=== PATIENT | female | born 1995 | race Caucasian/White ===

== ENCOUNTER 2017-03-01 00:31 | Emergency (ER) | payer BC ==
[2017-03-01] MEDS ORDERED: Sodium Chloride 0.9% 1,000 ML IV ONE (00:44)
--- NOTE | 2017-03-01 00:44 | EDM.PDOC ---
ED HPI GENERAL MEDICAL PROBLEM - General Stated Complaint: DEHYDRATION Time Seen by Provider: 03/01/17 00:43 Source of Information: Reports: Patient - History of Present Illness INITIAL COMMENTS - FREE TEXT/NARRATIVE: HISTORY AND PHYSICAL: History of present illness: Patient with anxiety presents with palpitation and sensation of heart is pounding and she is unable to sleep no fever nausea vomiting chills sweats no chest pain shortness breath headache dizziness no bowel or urine symptoms Review of systems: As per history of present illness and below otherwise all systems reviewed and negative. Past medical history: As per history of present illness and as reviewed below otherwise noncontributory. Surgical history: As per history of present illness and as reviewed below otherwise noncontributory. Social history: No reported history of drug or alcohol abuse. Family history: As per history of present illness and as reviewed below otherwise noncontributory. Physical exam: HEENT: Atraumatic, normocephalic, pupils reactive, negative for conjunctival pallor or scleral icterus, mucous membranes moist, throat clear, neck supple, nontender, trachea midline. Lungs: Clear to auscultation, breath sounds equal bilaterally, chest nontender. Heart: S1S2, regular, negative for clicks, rubs, or JVD. Abdomen: Soft, nondistended, nontender. Negative for masses or hepatosplenomegaly. Negative for costovertebral tenderness. Pelvis: Stable nontender. Genitourinary: Deferred. Rectal: Deferred. Extremities: Atraumatic, negative for cords or calf pain. Neurovascular unremarkable. Neuro: Awake, alert, oriented. Cranial nerves II through XII unremarkable. Cerebellum unremarkable. Motor and sensory unremarkable throughout. Exam nonfocal. Left upper extremity ache no pain associated with head movement I can reproduce some pain with extremes of forward extension palpation over trapezius distribution as well as insertion of packed major on the left otherwise extremity is neurovascularly intact Diagnostics: []Lab as below EKG Chest 1 view Therapeutics: []1 L normal saline bolus Impression: [Anxiety about health Definitive disposition and diagnosis as appropriate pending reevaluation and review of above. no pain Pain Score (Numeric/FACES): 0 - Related Data Allergies Allergy/AdvReac Type Severity Reaction Status Date / Time No Known Allergies Allergy Verified 03/01/17 01:04 Home Meds: Home Meds . [No Known Home Meds] 03/01/17 [History] ED ROS GENERAL - Review of Systems Review Of Systems: ROS reveals no pertinent complaints other than HPI. ED EXAM, GENERAL - Physical Exam Exam: See Below Course - Vital Signs Last Recorded V/S: Last Vital Signs Temp 37.3 C 03/01/17 00:40 Pulse 84 03/01/17 00:40 Resp 18 03/01/17 00:40 BP 136/90 03/01/17 00:40 Pulse Ox 100 03/01/17 00:40 - Orders/Labs/Meds Orders: Active Orders 24 hr Category Date Time Status EKG 12 Lead [EKG Documentation Completion] [RC] STAT Care 03/01/17 01:13 Active Labs: Laboratory Tests 03/01/17 03/01/17 03/01/17 Range/Units 00:55 01:15 01:15 WBC 8.68 (4.0-11.0) K/uL RBC 4.83 (4.30-5.90) M/uL Hgb 14.5 (12.0-16.0) g/dL Hct 42.3 (36.0-46.0) % MCV 87.6 (80.0-98.0) fL MCH 30.0 (27.0-32.0) pg MCHC 34.3 (31.0-37.0) g/dL RDW Std Deviation 39.8 (28.0-62.0) fl RDW Coeff of Patricio 12 (11.0-15.0) % Plt Count 188 (150-400) K/uL MPV 10.60 (7.40-12.00) fL Neut % (Auto) 61.6 (48.0-80.0) % Lymph % (Auto) 30.2 (16.0-40.0) % Wright % (Auto) 6.3 (0.0-15.0) % Eos % (Auto) 1.6 (0.0-7.0) % Baso % (Auto) 0.3 (0.0-1.5) % Neut # (Auto) 5.3 (1.4-5.7) K/uL Lymph # (Auto) 2.6 H (0.6-2.4) K/uL Wright # (Auto) 0.6 (0.0-0.8) K/uL Eos # (Auto) 0.1 (0.0-0.7) K/uL Baso # (Auto) 0.0 (0.0-0.1) K/uL Nucleated RBC % 0.0 /100WBC Nucleated RBCs # 0 K/uL Sodium 140 (136-146) mmol/L Potassium 4.1 (3.5-5.1) mmol/L Chloride 107 (98-110) mmol/L Carbon Dioxide 24 (21-31) mmol/L BUN 16 (6.0-23.0) mg/dL Creatinine 0.9 (0.6-1.5) mg/dL Est Cr Clr Drug Dosing 76.89 mL/min Estimated GFR (MDRD) > 60.0 ml/min Glucose 110 (60-110) mg/dL Calcium 9.2 (8.8-10.8) mg/dL Total Bilirubin 0.9 (0.1-1.5) mg/dL AST 15 (5-40) IU/L ALT 14 (8-54) IU/L Alkaline Phosphatase 42 (40-150) Troponin I (0.0-0.29) NG/ML Total Protein 7.4 (6.0-8.0) g/dL Albumin 4.3 (3.5-5.0) g/dL Globulin 3.1 (2.0-3.5) g/dL Albumin/Globulin Ratio 1.4 (1.3-2.8) Urine Color YELLOW Urine Appearance CLEAR Urine pH 7.0 (5.0-8.0) Ur Specific Mcandrews <= 1.005 (1.001-1.035) Urine Protein NEGATIVE (NEGATIVE) mg/dL Urine Glucose (UA) NEGATIVE (NEGATIVE) mg/dL Urine Ketones NEGATIVE (NEGATIVE) mg/dL Urine Occult Blood NEGATIVE (NEGATIVE) Urine Nitrite NEGATIVE (NEGATIVE) Urine Bilirubin NEGATIVE (NEGATIVE) Urine Urobilinogen 0.2 (<2.0) EU/dL Ur Leukocyte Esterase NEGATIVE (NEGATIVE) Urine RBC 0-1 (0-2/HPF) Urine WBC 0-2 (0-5/HPF) Ur Epithelial Cells OCCASIONAL (NONE-FEW) Urine Bacteria RARE (NEGATIVE) Urine Mucus RARE (NONE-MOD) 03/01/17 Range/Units 01:15 WBC (4.0-11.0) K/uL RBC (4.30-5.90) M/uL Hgb (12.0-16.0) g/dL Hct (36.0-46.0) % MCV (80.0-98.0) fL MCH (27.0-32.0) pg MCHC (31.0-37.0) g/dL RDW Std Deviation (28.0-62.0) fl RDW Coeff of Patricio (11.0-15.0) % Plt Count (150-400) K/uL MPV (7.40-12.00) fL Neut % (Auto) (48.0-80.0) % Lymph % (Auto) (16.0-40.0) % Wright % (Auto) (0.0-15.0) % Eos % (Auto) (0.0-7.0) % Baso % (Auto) (0.0-1.5) % Neut # (Auto) (1.4-5.7) K/uL Lymph # (Auto) (0.6-2.4) K/uL Wright # (Auto) (0.0-0.8) K/uL Eos # (Auto) (0.0-0.7) K/uL Baso # (Auto) (0.0-0.1) K/uL Nucleated RBC % /100WBC Nucleated RBCs # K/uL Sodium (136-146) mmol/L Potassium (3.5-5.1) mmol/L Chloride (98-110) mmol/L Carbon Dioxide (21-31) mmol/L BUN (6.0-23.0) mg/dL Creatinine (0.6-1.5) mg/dL Est Cr Clr Drug Dosing mL/min Estimated GFR (MDRD) ml/min Glucose (60-110) mg/dL Calcium (8.8-10.8) mg/dL Total Bilirubin (0.1-1.5) mg/dL AST (5-40) IU/L ALT (8-54) IU/L Alkaline Phosphatase (40-150) Troponin I < 0.10 (0.0-0.29) NG/ML Total Protein (6.0-8.0) g/dL Albumin (3.5-5.0) g/dL Globulin (2.0-3.5) g/dL Albumin/Globulin Ratio (1.3-2.8) Urine Color Urine Appearance Urine pH (5.0-8.0) Ur Specific Mcandrews (1.001-1.035) Urine Protein (NEGATIVE) mg/dL Urine Glucose (UA) (NEGATIVE) mg/dL Urine Ketones (NEGATIVE) mg/dL Urine Occult Blood (NEGATIVE) Urine Nitrite (NEGATIVE) Urine Bilirubin (NEGATIVE) Urine Urobilinogen (<2.0) EU/dL Ur Leukocyte Esterase (NEGATIVE) Urine RBC (0-2/HPF) Urine WBC (0-5/HPF) Ur Epithelial Cells (NONE-FEW) Urine Bacteria (NEGATIVE) Urine Mucus (NONE-MOD) Meds: Medications Discontinued Medications Generic Name Dose Route Start Last Admin Trade Name Freq PRN Reason Stop Dose Admin Sodium Chloride 1,000 mls @ 999 mls/hr 03/01/17 00:44 03/01/17 01:20 Normal Saline IV 03/01/17 01:44 999 mls/hr STAT ONE Administration Departure - Departure Time of Disposition: 01:37 Disposition: Home, Self-Care 01 Condition: Good Clinical Impression: Anxiety about health Clinical Impression: (Ruled Out): Muscle spasm - Discharge Information Referrals: Krunal Gonzalez MD [Primary Care Provider] - Additional Instructions: Ativan 0.5 mg by mouth twice a day when necessary #10 no refill Return if symptoms persist or worsen Follow-up primary care in 2 weeks sooner as needed The following information is given to patients seen in the emergency department who are being discharged to home. This information is to outline your options for follow-up care. We provide all patients seen in our emergency department with a follow-up referral. The need for follow-up, as well as the timing and circumstances, are variable depending upon the specifics of your emergency department visit. If you don't have a primary care physician on staff, we will provide you with a referral. We always advise you to contact your personal physician following an emergency department visit to inform them of the circumstance of the visit and for follow-up with them and/or the need for any referrals to a consulting specialist. The emergency department will also refer you to a specialist when appropriate. This referral assures that you have the opportunity for follow-up care with a specialist. All of these measure are taken in an effort to provide you with optimal care, which includes your follow-up. Under all circumstances we always encourage you to contact your private physician who remains a resource for coordinating your care. When calling for follow-up care, please make the office aware that this follow-up is from your recent emergency room visit. If for any reason you are refused follow-up, please contact the [facility] emergency department at and asked to speak to the emergency department charge nurse. - My Orders Last 24 Hours: My Active Orders 03/01/17 01:13 EKG 12 Lead [EKG Documentation Completion] [RC] STAT - Assessment/Plan Last 24 Hours: My Active Orders 03/01/17 01:13 EKG 12 Lead [EKG Documentation Completion] [RC] STAT
[2017-03-01 01:52] LABS: CHLORIDE,CL 107 mmol/L (98-110); SODIUM,NA 140 mmol/L (136-146)
[2017-03-01 02:31] VITALS: BP 130/65
== END 2017-03-01 02:29 | disposition home or self-care (01) ==
LOC: MW.ED 00:31
DX: F41.9 Anxiety disorder, unspecified (principal)
CPT/HCPCS: 80053; 81001; 84484; 85025; 93005; 96360; 99285; J7040; 99282

== ENCOUNTER 2019-04-14 23:51 | Emergency (ER) | payer BC ==
[2019-04-15] MEDS ORDERED: Levofloxacin 500 MG Tab PO ONE (00:28)
--- NOTE | 2019-04-15 00:28 | EDM.PDOC ---
ED HPI GENERAL MEDICAL PROBLEM - General Chief Complaint: Genitourinary Problem Stated Complaint: SEVERE BACK PAIN AND SPOTTING Time Seen by Provider: 04/15/19 00:27 Source of Information: Reports: Patient - History of Present Illness INITIAL COMMENTS - FREE TEXT/NARRATIVE: HISTORY AND PHYSICAL: History of present illness: [Patient presents with frequency dysuria and "spotting", is recently been treated with Macrobid for UTI through the [facility] system, when questioned about spotting her last menstrual period was 2 weeks prior she is not per our testing however she is not truly spotting she is noting some blood on the tissue after wiping after passing urine No fever nausea vomiting chills sweats she does have some mild 2 out of 10 left flank discomfort] Review of systems: As per history of present illness and below otherwise all systems reviewed and negative. Past medical history: As per history of present illness and as reviewed below otherwise noncontributory. Surgical history: As per history of present illness and as reviewed below otherwise noncontributory. Social history: No reported history of drug or alcohol abuse. Family history: As per history of present illness and as reviewed below otherwise noncontributory. Physical exam: HEENT: Atraumatic, normocephalic, pupils reactive, negative for conjunctival pallor or scleral icterus, mucous membranes moist, throat clear, neck supple, nontender, trachea midline. Lungs: Clear to auscultation, breath sounds equal bilaterally, chest nontender. Heart: S1S2, regular, negative for clicks, rubs, or JVD. Abdomen: Soft, nondistended, nontender. Negative for masses or hepatosplenomegaly. Kidney punch is positive on the left Pelvis: Stable nontender. Genitourinary: Deferred. Rectal: Deferred. Extremities: Atraumatic, negative for cords or calf pain. Neurovascular unremarkable. Neuro: Awake, alert, oriented. Cranial nerves II through XII unremarkable. Cerebellum unremarkable. Motor and sensory unremarkable throughout. Exam nonfocal. Diagnostics: [UA hCG ] Therapeutics: [Kianna Garcia ] Impression: [UTI Clinical early pyelonephritis ] Definitive disposition and diagnosis as appropriate pending reevaluation and review of above. L flank Pain Score (Numeric/FACES): 8 - Related Data Allergies Allergy/AdvReac Type Severity Reaction Status Date / Time No Known Allergies Allergy Verified 04/15/19 00:06 Home Meds: Home Meds Desvenlafaxine Succinate [Pristiq] 50 mg PO DAILY 04/15/19 [History] Past Medical History HEENT History: Reports: None Cardiovascular History: Reports: None Respiratory History: Reports: None Gastrointestinal History: Reports: None Genitourinary History: Reports: None MANAGER INVENTORY MANAGEMENT History: Reports: , Spontaneous Musculoskeletal History: Reports: None Neurological History: Reports: None Psychiatric History: Reports: Anxiety, Depression Endocrine/Metabolic History: Reports: None Hematologic History: Reports: None Immunologic History: Reports: None Oncologic (Cancer) History: Reports: None Dermatologic History: Reports: None - Infectious Disease History Infectious Disease History: Reports: None - Past Surgical History Head Surgeries/Procedures: Reports: None Female Surgical History: Reports: Section Social & Family History - Family History Family Medical History: Noncontributory - Tobacco Use Smoking Status *Q: Never Smoker Second Hand Smoke Exposure: No - Caffeine Use Caffeine Use: Reports: Coffee, Soda - Recreational Drug Use Recreational Drug Use: No ED ROS GENERAL - Review of Systems Review Of Systems: See Below ED EXAM, GENERAL - Physical Exam Exam: See Below Course - Vital Signs Last Recorded V/S: Last Vital Signs Temp 97.5 F 04/15/19 00:00 Pulse 75 04/15/19 00:00 Resp 16 04/15/19 00:00 BP 137/73 04/15/19 00:00 Pulse Ox 99 04/15/19 00:00 - Orders/Labs/Meds Orders: Active Orders 24 hr Category Date Time Status CULTURE URINE [RM] Stat Lab 04/15/19 00:05 Received levoFLOXacin [Levaquin] Med 04/15/19 00:28 Once 500 mg PO ONETIME ONE Labs: Laboratory Tests 04/15/19 04/15/19 Range/Units 00:05 00:05 Urine Color YELLOW Urine Appearance CLOUDY Urine pH 6.0 (5.0-8.0) Ur Specific Carlton >= 1.030 (1.001-1.035) Urine Protein NEGATIVE (NEGATIVE) mg/dL Urine Glucose (UA) NEGATIVE (NEGATIVE) mg/dL Urine Ketones NEGATIVE (NEGATIVE) mg/dL Urine Occult Blood LARGE H (NEGATIVE) Urine Nitrite NEGATIVE (NEGATIVE) Urine Bilirubin NEGATIVE (NEGATIVE) Urine Urobilinogen 2.0 H (<2.0) EU/dL Ur Leukocyte Esterase MODERATE H (NEGATIVE) Urine RBC 15-19 (0-2/HPF) Urine WBC 75-100 (0-5/HPF) Ur Epithelial Cells RARE (NONE-FEW) Urine Bacteria 1+ H (NEGATIVE) Coarse Granular Casts 0-1 (NEGATIVE) Urine Mucus LIGHT (NONE-MOD) Urine HCG, Qual NEGATIVE (NEGATIVE) Departure - Departure Time of Disposition: 00:30 Disposition: Home, Self-Care 01 Condition: Good Clinical Impression: UTI, Urinary tract infectious disease - Discharge Information Referrals: Krunal Gonzalez MD [Primary Care Provider] - Forms: ED Department Discharge Additional Instructions: The following information is given to patients seen in the emergency department who are being discharged to home. This information is to outline your options for follow-up care. We provide all patients seen in our emergency department with a follow-up referral. The need for follow-up, as well as the timing and circumstances, are variable depending upon the specifics of your emergency department visit. If you don't have a primary care physician on staff, we will provide you with a referral. We always advise you to contact your personal physician following an emergency department visit to inform them of the circumstance of the visit and for follow-up with them and/or the need for any referrals to a consulting specialist. The emergency department will also refer you to a specialist when appropriate. This referral assures that you have the opportunity for follow-up care with a specialist. All of these measure are taken in an effort to provide you with optimal care, which includes your follow-up. Under all circumstances we always encourage you to contact your private physician who remains a resource for coordinating your care. When calling for follow-up care, please make the office aware that this follow-up is from your recent emergency room visit. If for any reason you are refused follow-up, please contact the [facility] emergency department at and asked to speak to the emergency department charge nurse. - My Orders Last 24 Hours: My Active Orders 04/15/19 00:05 CULTURE URINE [RM] Stat 04/15/19 00:28 levoFLOXacin [Levaquin] 500 mg PO ONETIME ONE - Assessment/Plan Last 24 Hours: My Active Orders 04/15/19 00:05 CULTURE URINE [RM] Stat 04/15/19 00:28 levoFLOXacin [Levaquin] 500 mg PO ONETIME ONE
[2019-04-15 00:35] VITALS: BP 123/80; PULSE 69
== END 2019-04-15 00:40 | disposition home or self-care (01) ==
LOC: MW.ED 23:51
DX: N12 Tubulo-interstitial nephritis, not specified as acute or chronic (principal)
CPT/HCPCS: 81001; 81025; 87086; 99284; A9270

== ENCOUNTER 2019-07-25 14:52 | Emergency (ER) | payer BC ==
[2019-07-25 15:21] VITALS: BP 122/56; PULSE 70
--- NOTE | 2019-07-25 16:07 | EDM.PDOC ---
ED HPI GENERAL MEDICAL PROBLEM - General Chief Complaint: Back Pain or Injury Stated Complaint: 10 WKS PREG, BACK AND RIB PAIN Time Seen by Provider: 07/25/19 15:16 Source of Information: Reports: Patient History Limitations: Reports: No Limitations - History of Present Illness INITIAL COMMENTS - FREE TEXT/NARRATIVE: HISTORY AND PHYSICAL: History of present illness: Patient is a 24-year-old female who presents to the ED today for concern of possible urinary tract infection. Patient states she is approximately 9 weeks . Patient states she has had a confirmed intrauterine with Dr. Nicolas at [facility]. Patient states yesterday she began having some vague low back discomfort and states that her urine has been cloudy since yesterday but no pain with urination or urinary frequency. Patient denies any loss or retention of bowel bladder function or saddle anesthesia or back injury. Patient denies any other symptoms or concerns. Patient denies fever, chills, chest pain, shortness of breath, or cough. Denies headache, neck stiff ness, change in vision, syncope, or near syncope. Denies nausea, vomiting, abdominal pain, diarrhea, constipation, or dysuria. Has not noted any blood in urine or stool. Patient has been eating and drinking appropriately. Review of systems: As per history of present illness and below otherwise all systems reviewed and negative. Past medical history: As per history of present illness and as reviewed below otherwise noncontributory. Surgical history: As per history of present illness and as reviewed below otherwise noncontributory. Social history: See social history for further information Family history: As per history of present illness and as reviewed below otherwise noncontributory. Physical exam: General: Patient is alert, oriented, and in no acute distress. Patient sitting comfortably on exam table. HEENT: Atraumatic, normocephalic, pupils equal and reactive bilaterally, negative for conjunctival pallor or scleral icterus, mucous membranes moist, TMs normal bilaterally, throat clear, neck supple, nontender, trachea midline. No drooling or trismus noted. No meningeal signs. No hot potato voice noted. Lungs: Clear to auscultation, breath sounds equal bilaterally, chest nontender. Heart: S1S2, regular rate and rhythm without overt murmur Abdomen: Soft, nondistended, nontender. Negative for masses or hepatosplenomegaly. Negative for costovertebral tenderness. Pelvis: Stable nontender. Genitourinary: Deferred. Rectal: Deferred. Skin: Intact, warm, dry. No lesions or rashes noted. Extremities: Atraumatic, negative for cords or calf pain. Neurovascular unremarkable. No obvious deformity of the complete spine. No step-offs, crepitus, or point tenderness to palpation of the complete spine. Patient has full range of motion of complete spine without pain or difficulty. SLR intact bilaterally. Patellar reflex intact bilaterally. Heel/Toe gait intact. Neuro: Awake, alert, oriented. Cranial nerves II through XII unremarkable. Cerebellum unremarkable. Motor and sensory unremarkable throughout. Exam nonfocal. Notes: Discussed importance for follow-up with her AQUATIC HABITAT BIOLOGIST women's health provider. Voices understanding and is agreeable to plan of care. Denies any further questions or concerns at this time. Diagnostics: UA, urine culture Therapeutics: None Prescription: None Impression: Low back pain in Plan: 1. You can take Tylenol as directed for pain and discomfort. This is safe to use in . 2. Follow-up with your AQUATIC HABITAT BIOLOGIST/women's health provider as discussed. Return to the ED as needed and as discussed. Definitive disposition and diagnosis as appropriate pending reevaluation and review of above. Lower back Pain Score (Numeric/FACES): 7 - Related Data Allergies Allergy/AdvReac Type Severity Reaction Status Date / Time pineapple Allergy Swelling Verified 07/25/19 15:18 Home Meds: Home Meds Comb No.42/Folic Acid [Prena1 Chew Tablet] 1.4 mg PO ASDIRECTED [History] Past Medical History HEENT History: Reports: None Cardiovascular History: Reports: None Respiratory History: Reports: None Gastrointestinal History: Reports: None Genitourinary History: Reports: None AQUATIC HABITAT BIOLOGIST History: Reports: , Spontaneous Musculoskeletal History: Reports: None Neurological History: Reports: None Psychiatric History: Reports: Anxiety, Depression Endocrine/Metabolic History: Reports: None Hematologic History: Reports: None Immunologic History: Reports: None Oncologic (Cancer) History: Reports: None Dermatologic History: Reports: None - Infectious Disease History Infectious Disease History: Reports: Chicken Pox - Past Surgical History Head Surgeries/Procedures: Reports: None Female Surgical History: Reports: Section Social & Family History - Family History Family Medical History: Noncontributory - Tobacco Use Smoking Status *Q: Never Smoker Second Hand Smoke Exposure: No - Caffeine Use Caffeine Use: Reports: None - Recreational Drug Use Recreational Drug Use: No ED ROS GENERAL - Review of Systems Review Of Systems: Comprehensive ROS is negative, except as noted in HPI. ED EXAM, GENERAL - Physical Exam Exam: See Below (see dictation) Course - Vital Signs Last Recorded V/S: Last Vital Signs Temp 98.1 F 07/25/19 15:19 Pulse 70 07/25/19 15:19 Resp 16 07/25/19 15:19 BP 122/56 L 07/25/19 15:19 Pulse Ox 99 07/25/19 15:19 - Orders/Labs/Meds Orders: Active Orders 24 hr Category Date Time Status CULTURE URINE [RM] Stat Lab 07/25/19 16:22 Ordered Labs: Laboratory Tests 07/25/19 Range/Units 16:15 Urine Color YELLOW Urine Appearance SLT CLOUDY Urine pH 7.0 (5.0-8.0) Ur Specific [place] 1.025 (1.001-1.035) Urine Protein NEGATIVE (NEGATIVE) mg/dL Urine Glucose (UA) NEGATIVE (NEGATIVE) mg/dL Urine Ketones TRACE H (NEGATIVE) mg/dL Urine Occult Blood NEGATIVE (NEGATIVE) Urine Nitrite NEGATIVE (NEGATIVE) Urine Bilirubin NEGATIVE (NEGATIVE) Urine Urobilinogen 1.0 (<2.0) EU/dL Ur Leukocyte Esterase NEGATIVE (NEGATIVE) Departure - Departure Time of Disposition: 16:24 Disposition: Home, Self-Care 01 Clinical Impression: Low back pain during Qualifiers: Trimester: first trimester Qualified Code(s): O26.891 - Other specified related conditions, first trimester; M54.5 - Low back pain - Discharge Information Referrals: Krunal Gonzalez MD [Primary Care Provider] - Forms: ED Department Discharge Additional Instructions: The following information is given to patients seen in the emergency department who are being discharged to home. This information is to outline your options for follow-up care. We provide all patients seen in our emergency department with a follow-up referral. The need for follow-up, as well as the timing and circumstances, are variable depending upon the specifics of your emergency department visit. If you don't have a primary care physician on staff, we will provide you with a referral. We always advise you to contact your personal physician following an emergency department visit to inform them of the circumstance of the visit and for follow-up with them and/or the need for any referrals to a consulting specialist. The emergency department will also refer you to a specialist when appropriate. This referral assures that you have the opportunity for follow-up care with a specialist. All of these measure are taken in an effort to provide you with optimal care, which includes your follow-up. Under all circumstances we always encourage you to contact your private physician who remains a resource for coordinating your care. When calling for follow-up care, please make the office aware that this follow-up is from your recent emergency room visit. If for any reason you are refused follow-up, please contact the [facility] Emergency Department at and asked to speak to the emergency department charge nurse. [facility] [address] [place] [address] [facility] [address] [place] [address] [facility] [address] [place] [address] 1. You can take Tylenol as directed for pain and discomfort. This is safe to use in . 2. Follow-up with your AQUATIC HABITAT BIOLOGIST/women's health provider as discussed. Return to the ED as needed and as discussed. Sepsis Event Note - Evaluation Sepsis Screening Result: No Definite Risk - Focused Exam Vital Signs: Vital Signs Temp Pulse Resp BP Pulse Ox 07/25/19 15:19 98.1 F 70 16 122/56 L 99 Date Exam was Performed: 07/25/19 Time Exam was Performed: 16:23 - My Orders Last 24 Hours: My Active Orders 07/25/19 16:22 CULTURE URINE [RM] Stat - Assessment/Plan Last 24 Hours: My Active Orders 07/25/19 16:22 CULTURE URINE [RM] Stat
== END 2019-07-25 16:44 | disposition home or self-care (01) ==
LOC: MW.ED 14:52
DX: O26.891 Other specified pregnancy related conditions, first trimester (principal); M54.5 Low back pain; O34.219 Maternal care for unspecified type scar from previous cesarean delivery; Z91.018 Allergy to other foods; Z3A.09 9 weeks gestation of pregnancy
CPT/HCPCS: 81003; 87086; 99283

== ENCOUNTER 2021-06-29 05:15 | Inpatient (IN) | payer BC ==
[2021-06-29] MEDS ORDERED: Sodium Chloride 0.9% 10 ML Syringe FLUSH PRN (05:38)
[2021-06-29] MEDS ORDERED: Sodium Chloride 0.9% 20 ML SDV IV PRN (05:38)
[2021-06-29] MEDS ORDERED: Sodium Chloride 0.9% 2.5 ML Syringe FLUSH PRN (05:38)
[2021-06-29] MEDS: Lactated Ringers 1,000 ML IV SCH ×2 (06:00→06:32)
[2021-06-29] MEDS: Citric Acid/Sodium Citrate Solution 30 ML Cup PO ONE ×2 (06:39→08:04)
[2021-06-29] MEDS ORDERED: fentaNYL 100 MCG/2 ML SDV ONE ×2 (07:21→07:59)
[2021-06-29] MEDS ORDERED: ceFAZolin 2 GM in Premix Bag 1 BAG IV ONE (07:30)
[2021-06-29] MEDS ORDERED: Ondansetron 4 MG/2 ML SDV IVPUSH ONE (07:39)
[2021-06-29] MEDS ORDERED: Dexamethasone 10 MG/ML SDV IVPUSH ONE (07:40)
[2021-06-29] MEDS ORDERED: Famotidine 20 MG/2 ML SDV IVPUSH ONE (07:40)
[2021-06-29] MEDS ORDERED: Octyl 2-Cyanoacrylate 1 Tube ONE (07:52)
[2021-06-29] MEDS ORDERED: Oxytocin/0.9 % Sodium Chloride 30 UNIT/500 ML BAG IV SCH ×2 (08:00→09:45)
[2021-06-29] MEDS ORDERED: Morphine PF 10 MG/10 ML SDV ONE (08:09)
[2021-06-29] MEDS ORDERED: ePHEDrine 50 MG/ML SDV ONE (09:22)
[2021-06-29] MEDS ORDERED: Glycopyrrolate 0.2 MG/ML SDV ONE (09:22)
[2021-06-29] MEDS ORDERED: Oxytocin 10 Units/1 ML SDV ONE ×2 (09:22→17:11)
[2021-06-29] MEDS ORDERED: Acetaminophen/oxyCODONE 325-5 MG Tab PO PRN ×2 (09:32)
[2021-06-29] MEDS ORDERED: Methylergonovine 0.2 MG/1 ML Amp IM PRN (09:32)
[2021-06-29] MEDS ORDERED: Bisacodyl 10 MG Supp RECTAL PRN (09:32)
[2021-06-29] MEDS ORDERED: diphenhydrAMINE 50 MG/ML SDV IVPUSH PRN (09:32)
[2021-06-29] MEDS ORDERED: Tranexamic Acid 1,000 MG in Sodium Chloride 0.9% 100 ML IV PRN (09:32)
[2021-06-29] MEDS ORDERED: Oxytocin 10 Units/1 ML SDV IM PRN (09:32)
[2021-06-29] MEDS ORDERED: Lanolin 100% Cream 7 GM Tube TOP PRN (09:32)
[2021-06-29] MEDS ORDERED: Misoprostol 200 MCG Tab RECTAL PRN (09:32)
--- NOTE | 2021-06-29 09:40 | PCM.OPNOTE ---
- General Post-Op/Procedure Note Date of Surgery/Procedure: 06/29/21 Operative Procedure(s): Repeat lower transverse section Findings: Normal appearing male infant in cephalic presentation. Weight 8lbs 6oz. Apgars 8/9. Nuchal chord x1. Clear amniotic fluid. Normal appearing uterus, fallopian tubes and ovaries. Pre Op Diagnosis: 1. 39w1d hogan intrauterine gestation. 2. Gestational diabetes, diet controlled. 3. Previous section x2 Post-Op Diagnosis: 1. 39w1d hogan intrauterine gestation. 2. Gestational diabetes, diet controlled. 3. Previous section x2 Anesthesia Technique: Spinal Primary Surgeon: Corinne Diamond Anesthesia Provider: Krunal Guadarrama Digitizer: Helen Gonzalez Fluid Replacement, Intraop: 2,100 Output, Urine Amount: 400 (clear urine at end of procedure) EBL in mLs: 650 Complications: None known Condition: Good Free Text/Narrative:: Intake & Output 06/28/21 06/29/21 06/29/21 22:59 06:59 14:59 Intake Total 1000 50 Balance 1000 50 Dictation #[id number] Routine postoperative cares * Rh positive, rubella immune, GBS negative * PO pain medications ordered * Coon catheter to be removed in AM * Encourage fluid intake * Regular diet as tolerated Dispo: stable. Admit to floor and anticipate routine course.
[2021-06-29] MEDS ORDERED: Water For Injection, Sterile 20 ML ONE (09:44)
[2021-06-29] MEDS ORDERED: Lactated Ringers 1,000 ML IV SCH (09:45)
--- NOTE | 2021-06-29 09:56 | PCM.POSTAN ---
POST ANESTHESIA ASSESSMENT - MENTAL STATUS Mental Status: Alert, Oriented - RESPIRATORY Respiratory Status: Respiratory Rate WNL, Airway Patent, O2 Saturation Stable - CARDIOVASCULAR CV Status: Pulse Rate WNL, Blood Pressure Stable - GASTROINTESTINAL GI Status: No Symptoms - POST OP HYDRATION Hydration Status: Adequate & Stable
--- NOTE | 2021-06-29 09:56 | PCM.PREANE ---
Preanesthetic Assessment - Anesthesia/Transfusion/Family Hx Anesthesia History: Prior Anesthesia Without Reaction Family History of Anesthesia Reaction: No Transfusion History: No Prior Transfusion(s) - Review of Systems General: No Symptoms Pulmonary: No Symptoms Cardiovascular: No Symptoms Gastrointestinal: No Symptoms, Other (Gestational DM) Neurological: No Symptoms Other: Reports: None - Physical Assessment NPO Status Date: 06/28/21 NPO Status Time: 00:00 Height: 1.59 m Weight: 81.647 kg ASA Class: 3 Mental Status: Alert & Oriented x3 Airway Class: Mallampati = 2 Dentition: Reports: Normal Dentition Thyro-Mental Finger Breadths: 3 Mouth Opening Finger Breadths: 3 ROM/Head Extension: Full Lungs: Clear to Auscultation, Normal Respiratory Effort Cardiovascular: Regular Rate, Regular Rhythm - Lab Values: Laboratory Last Values WBC 6.37 K/uL (4.0-11.0) 06/26/21 09:52 RBC 3.84 M/uL (4.30-5.90) L 06/26/21 09:52 Hgb 11.5 g/dL (12.0-16.0) L 06/26/21 09:52 Hct 34.5 % (36.0-46.0) L 06/26/21 09:52 MCV 89.8 fL (80.0-98.0) 06/26/21 09:52 MCH 29.9 pg (27.0-32.0) 06/26/21 09:52 MCHC 33.3 g/dL (31.0-37.0) 06/26/21 09:52 RDW Std Deviation 41.9 fl (28.0-62.0) 06/26/21 09:52 RDW Coeff of Patricio 13 % (11.0-15.0) 06/26/21 09:52 Plt Count 167 K/uL (150-400) 06/26/21 09:52 MPV 11.00 fL (7.40-12.00) 06/26/21 09:52 Nucleated RBC % 0.0 /100WBC 06/26/21 09:52 Nucleated RBCs # 0 K/uL 06/26/21 09:52 POC Glucose 88 mg/dL (70-99) 06/29/21 05:58 RPR Non-Reac (Non-Reac) 06/26/21 09:52 Blood Type A POSITIVE 06/26/21 09:52 Antibody Screen NEGATIVE 06/26/21 09:52 - Allergies Allergies/Adverse Reactions: Allergies Allergy/AdvReac Type Severity Reaction Status Date / Time pineapple Allergy Swelling Verified 06/25/21 07:32 - Blood Blood Available: Yes Product(s) Available: PRBC (Type and screen) - Anesthesia Plan Pre-Op Medication Ordered: None - Acknowledgements Anesthesia Type Planned: Epidural Pt an Appropriate Candidate for the Planned Anesthesia: Yes Alternatives and Risks of Anesthesia Discussed w Pt/Guardian: Yes Pt/Guardian Understands and Agrees with Anesthesia Plan: Yes PreAnesthesia Questionnaire HEENT History: Reports: Other (See Below) Other HEENT History: wears glasses Cardiovascular History: Reports: None Respiratory History: Reports: None Gastrointestinal History: Reports: None Genitourinary History: Reports: None [employer] History: Reports: , Spontaneous Musculoskeletal History: Reports: None Neurological History: Reports: None Psychiatric History: Reports: Anxiety, Depression Endocrine/Metabolic History: Reports: Diabetes, Gestational Hematologic History: Reports: None Immunologic History: Reports: None Oncologic (Cancer) History: Reports: None Dermatologic History: Reports: None - Infectious Disease History Infectious Disease History: Reports: Chicken Pox - Past Surgical History Head Surgeries/Procedures: Reports: None HEENT Surgical History: Reports: Oral Surgery Other HEENT Surgeries/Procedures: wisdom teeth extraction Cardiovascular Surgical History: Reports: None Respiratory Surgical History: Reports: None GI Surgical History: Reports: None Female Surgical History: Reports: Section Other Female Surgeries/Procedures: c/section x2 Endocrine Surgical History: Reports: None Neurological Surgical History: Reports: None Musculoskeletal Surgical History: Reports: None Oncologic Surgical History: Reports: None Dermatological Surgical History: Reports: None - SUBSTANCE USE Tobacco Use Status *Q: Never Tobacco User Second Hand Smoke Exposure: No Recreational Drug Use History: No - HOME MEDS Home Medications: Home Meds Comb No.42/Folic Acid [Prena1 Chew Tablet] 1.4 mg PO ASDIRECTED 07/25/19 [History] Desvenlafaxine [Desvenlafaxine ER] 50 mg PO DAILY 06/25/21 [History] - CURRENT (IN HOUSE) MEDS Current Meds: Current Medications Bisacodyl (Bisacodyl 10 Mg Supp) 10 mg RECTAL ONETIME PRN PRN Reason: Constipation Diphenhydramine HCl (Diphenhydramine 50 Mg/Ml Sdv) 25 mg IVPUSH Q6H PRN PRN Reason: Itching or Nausea Docusate Sodium (Docusate Sodium 100 Mg Cap) 100 mg PO BID [facility] Emollient Ointment (Lanolin 100% Cream 7 Gm Tube) 0 gm TOP ASDIRECTED PRN PRN Reason: Sore Nipples Oxytocin/Sodium Chloride (Oxytocin 30 Unit In Ns 0.9% 500 Ml Premix) 30 unit in 500 mls @ 250 mls/hr IV TITRATE [facility] Lactated Ringer's (Ringers, Lactated) 1,000 mls @ 500 mls/hr IV BOLUS [facility] Last Admin: 06/29/21 06:32 Dose: 500 mls/hr Documented by: Lactated Ringer's (Ringers, Lactated) 1,000 mls @ 125 mls/hr IV ASDIRECTED [facility] Oxytocin/Sodium Chloride (Oxytocin 30 Unit In Ns 0.9% 500 Ml Premix) 30 unit in 500 mls @ 125 mls/hr IV TITRATE [facility]; Protocol Tranexamic Acid 1,000 mg/ (Sodium Chloride) 110 mls @ 660 mls/hr IV ONETIME PRN PRN Reason: Bleeding Ibuprofen (Ibuprofen 800 Mg Tab) 800 mg PO Q8H PRN PRN Reason: Cramping Ketorolac Tromethamine (Ketorolac 30 Mg/Ml Sdv) 30 mg IVPUSH Q6H [facility] Stop: 06/30/21 09:46 Methylergonovine Maleate (Methylergonovine 0.2 Mg/1 Ml Amp) 0.2 mg IM ONETIME PRN PRN Reason: Excessive Vaginal Bleeding Misoprostol (Misoprostol 200 Mcg Tab) 1,000 mcg RECTAL ONETIME PRN PRN Reason: excessive bleeding Ondansetron HCl (Ondansetron 4 Mg/2 Ml Sdv) 4 mg IVPUSH Q4H PRN PRN Reason: Nausea/Vomiting Oxycodone/Acetaminophen (Acetaminophen/Oxycodone 325-5 Mg Tab) 1 tab PO Q4H PRN PRN Reason: Pain (severe 7-10) Oxycodone/Acetaminophen (Acetaminophen/Oxycodone 325-5 Mg Tab) 2 tab PO Q4H PRN PRN Reason: Pain (severe 7-10) Oxytocin (Oxytocin 10 Units/1 Ml Sdv) 10 unit IM ASDIRECTED PRN PRN Reason: Excessive Vaginal Bleeding Sodium Chloride (Sodium Chloride 0.9% 10 Ml Syringe) 10 ml FLUSH ASDIRECTED PRN PRN Reason: Keep Vein Open Sodium Chloride (Sodium Chloride 0.9% 2.5 Ml Syringe) 2.5 ml FLUSH ASDIRECTED PRN PRN Reason: Keep Vein Open Sodium Chloride (Sodium Chloride 0.9% 20 Ml Sdv) 10 ml IV ASDIRECTED PRN PRN Reason: IV Use Discontinued Medications Citric Acid/Sodium Citrate (Citric Acid/Sodium Citrate Solution 30 Ml Cup) 30 ml PO ONETIME ONE Stop: 06/29/21 07:31 Last Admin: 06/29/21 08:04 Dose: 30 ml Documented by: Dexamethasone (Dexamethasone 10 Mg/Ml Sdv) 8 mg IVPUSH ONETIME ONE Stop: 06/29/21 07:41 Last Admin: 06/29/21 07:52 Dose: 8 mg Documented by: Ephedrine Sulfate (Ephedrine 50 Mg/Ml Sdv) Confirm Administered Dose 50 mg .ROUTE .STK-MED ONE Stop: 06/29/21 09:23 Famotidine (Famotidine 20 Mg/2 Ml Sdv) 20 mg IVPUSH ONETIME ONE Stop: 06/29/21 07:41 Last Admin: 06/29/21 08:02 Dose: 20 mg Documented by: Fentanyl (Fentanyl 100 Mcg/2 Ml Sdv) Confirm Administered Dose 100 mcg .ROUTE .STK-MED ONE Stop: 06/29/21 07:22 Fentanyl (Fentanyl 100 Mcg/2 Ml Sdv) Confirm Administered Dose 100 mcg .ROUTE .STK-MED ONE Stop: 06/29/21 08:00 Glycopyrrolate (Glycopyrrolate 0.2 Mg/Ml Sdv) Confirm Administered Dose 0.4 mg .ROUTE .STK-MED ONE Stop: 06/29/21 09:23 Cefazolin Sodium/Dextrose 2 gm (/ Premix) 50 mls @ 100 mls/hr IV ONETIME ONE Stop: 06/29/21 07:59 Last Admin: 06/29/21 06:34 Dose: 100 mls/hr Documented by: Acetaminophen (Ofirmev 1000 Mg/100 Ml) Confirm Administered Dose 100 mls @ as directed .ROUTE .STK-MED ONE Stop: 06/29/21 08:38 Sterile Water (Sterile Water For Injection) Confirm Administered Dose 20 mls @ as directed .ROUTE .STK-MED ONE Stop: 06/29/21 09:45 Morphine Sulfate (Morphine Pf 10 Mg/10 Ml Sdv) Confirm Administered Dose 10 mg .ROUTE .STK-MED ONE Stop: 06/29/21 08:10 Octyl Cyanoacrylate (Octyl 2-Cyanoacrylate 1 Tube) Confirm Administered Dose 1 applic .ROUTE .ST-MED ONE Stop: 06/29/21 07:53 Ondansetron HCl (Ondansetron 4 Mg/2 Ml Sdv) 4 mg IVPUSH ONETIME ONE Stop: 06/29/21 07:40 Last Admin: 06/29/21 07:58 Dose: 4 mg Documented by: Oxytocin (Oxytocin 10 Units/1 Ml Sdv) Confirm Administered Dose 60 unit .ROUTE .STK-MED ONE Stop: 06/29/21 09:23
[2021-06-29] MEDS: Ketorolac 30 MG/ML SDV IVPUSH SCH ×2 (11:45→16:30)
[2021-06-29] MEDS: Ondansetron 4 MG/2 ML SDV IVPUSH PRN ×2 (11:51→17:03)
--- NOTE | 2021-06-29 15:25 | OR ---
SURGEON: CORINNE CARREON MD DATE OF PROCEDURE: 06/29/2021 PREOPERATIVE DIAGNOSES: 1. Term intrauterine at 39 weeks and 1 day. 2. Gestational diabetes, diet controlled. 3. Previous section x2. POSTOPERATIVE DIAGNOSES: 1. Term intrauterine at 39 weeks and 1 day. 2. Gestational diabetes, diet controlled. 3. Previous section x2. PROCEDURE PERFORMED: Repeat lower transverse section. PRIMARY SURGEON: Corinne Carreon MD BEDSPREAD INSPECTOR: CYNTHIA Díaz ANESTHESIOLOGIST: Krunal Guadarrama CRNA ANESTHESIA: Spinal. COMPLICATIONS: None known. ESTIMATED BLOOD LOSS: 650 mL. IV FLUID: mL of crystalloid. URINE OUTPUT: 400 mL of clear urine at the end of the procedure. INDICATION: Patient is a 25-year-old, 5, para 3-0-1-3, at 39 weeks and 1 day gestation with complicated by previous section x2; and gestational diabetes, diet controlled. FINDINGS: Normal-appearing male infant, cephalic presentation. Weight 8 pounds 6 ounces. scores of 8 and 9. Nuchal cord x1, loose and reduced upon delivery. Clear amniotic fluid. Normal-appearing uterus, fallopian tubes, and ovaries. PROCEDURE: Patient was taken to the operating room where epidural anesthesia was found to be adequate. She was prepped and draped in the normal sterile fashion in the dorsal supine position with a leftward tilt. Skin incision was made with a scalpel and carried out to the underlying layer of fascia which was incised in the midline. The fascial incision was extended laterally with Vogt scissors bilaterally. The superior aspect of the fascial incision was then grasped with Roz clamps, elevated, and dissected off the rectus muscles with Mayos. The inferior aspect of the fascial incision was then grasped with Kochers and in a likewise manner was elevated and dissected off with Mayos. The peritoneum was then entered sharply with Metzenbaum scissors and extended with good visualization of the bladder. The Alejandro O ring was then inserted into the abdominal cavity for increased visualization. The vesicouterine peritoneum was identified, grasped with pickups, and entered sharply with Metzenbaum scissors. The bladder flap was then created digitally and uterine incision was then created in transverse fashion in the lower uterine segment with a scalpel and extended digitally. Amniotic sac was ruptured with Allis clamp. Clear fluid noted. 's head delivered atraumatically. A loose nuchal cord was then noted and reduced. The remainder of 's body was then delivered without difficulty. Nose and mouth suctioned with bulb. After approximately 60 seconds, the cord was clamped and cut, handed off to waiting nursing staff. Arterial, venous, and cord blood gases were then obtained. The placenta was then expressed and uterus exteriorized and the abdomen cleared of all clots and debris. The uterine incision was then repaired in a running locked fashion with 0 Monocryl. A second suture of the same was then used to imbricate the incision. Excellent hemostasis was noted. The uterus was then returned to the abdomen. Gutters were cleared of all clots and debris. The peritoneum was then closed in a running fashion with 2-0 Vicryl. The rectus muscles were then reapproximated with 3-0 chromic. The fascia was then closed with 0 Vicryl in a running fashion. The incision was irrigated. Hemostasis assured. Subcutaneous tissue was closed with 2-0 plain gut, and the skin incision was closed with 3-0 Vicryl on a Mir needle. Sponge, lap, and needle count were correct x2. Prophylactic antibiotics were given prior to the procedure. Patient tolerated the procedure well and will be recovering in delivery room with infant. MARTA PARR /[id number]
[2021-06-29] MEDS ORDERED: Ibuprofen 600 MG Tab PO PRN (21:45)
[2021-06-29] MEDS: Docusate Sodium 100 MG Cap PO SCH (21:54)
[2021-06-30] MEDS: Ibuprofen 800 MG Tab PO PRN ×3 (00:03→17:40)
[2021-06-30] MEDS: Ketorolac 30 MG/ML SDV IVPUSH SCH ×2 (08:01→14:43)
[2021-06-30] MEDS: Docusate Sodium 100 MG Cap PO SCH ×2 (08:01→21:03)
--- NOTE | 2021-06-30 08:08 | PCM.PNPP ---
- General Info Date of Service: 06/30/21 Admission Dx/Problem (Free Text): Repeat lower transverse section Subjective Update: Resting comfortably in bed during rounds. Pain well controlled. Talley catheter removed this AM, has not voided independently. Output adequate overnight. Ambula ting without difficulty. Lochia decreasing. Tolerating regular diet. with supplementation. - General Info Date of Service: 06/30/21 - Patient Data Vital Signs - Most Recent: Last Vital Signs Temp 97.8 F 06/30/21 05:27 Pulse 87 06/30/21 05:27 Resp 15 06/30/21 05:27 BP 104/45 L 06/30/21 05:27 Pulse Ox 93 L 06/30/21 05:27 Weight - Most Recent: 180 lb Lab Results - Last 24 Hours: Laboratory Results - last 24 hr 06/29/21 06/30/21 Range/Units 10:09 06:16 Hgb 9.6 L (12.0-16.0) g/dL Hct 29.1 L (36.0-46.0) % POC Glucose 96 (70-99) mg/dL Med Orders - Current: Current Medications Bisacodyl (Bisacodyl 10 Mg Supp) 10 mg RECTAL ONETIME PRN PRN Reason: Constipation Diphenhydramine HCl (Diphenhydramine 50 Mg/Ml Sdv) 25 mg IVPUSH Q6H PRN PRN Reason: Itching or Nausea Docusate Sodium (Docusate Sodium 100 Mg Cap) 100 mg PO BID [facility] Last Admin: 06/30/21 08:01 Dose: 100 mg Documented by: Emollient Ointment (Lanolin 100% Cream 7 Gm Tube) 0 gm TOP ASDIRECTED PRN PRN Reason: Sore Nipples Last Admin: 06/29/21 17:08 Dose: 1 applic Documented by: Oxytocin/Sodium Chloride (Oxytocin 30 Unit In Ns 0.9% 500 Ml Premix) 30 unit in 500 mls @ 250 mls/hr IV TITRATE [facility] Lactated Ringer's (Ringers, Lactated) 1,000 mls @ 500 mls/hr IV BOLUS [facility] Last Admin: 06/29/21 06:32 Dose: 500 mls/hr Documented by: Lactated Ringer's (Ringers, Lactated) 1,000 mls @ 125 mls/hr IV ASDIRECTED [facility] Last Admin: 06/29/21 14:14 Dose: 125 mls/hr Documented by: Oxytocin/Sodium Chloride (Oxytocin 30 Unit In Ns 0.9% 500 Ml Premix) 30 unit in 500 mls @ 125 mls/hr IV TITRATE [facility]; Protocol Tranexamic Acid 1,000 mg/ (Sodium Chloride) 110 mls @ 660 mls/hr IV ONETIME PRN PRN Reason: Bleeding Ibuprofen (Ibuprofen 800 Mg Tab) 800 mg PO Q8H PRN PRN Reason: Cramping Last Admin: 06/30/21 08:01 Dose: 800 mg Documented by: Ketorolac Tromethamine (Ketorolac 30 Mg/Ml Sdv) 30 mg IVPUSH Q6H [facility] Stop: 06/30/21 09:46 Last Admin: 06/30/21 08:01 Dose: Not Given Documented by: Methylergonovine Maleate (Methylergonovine 0.2 Mg/1 Ml Amp) 0.2 mg IM ONETIME PRN PRN Reason: Excessive Vaginal Bleeding Misoprostol (Misoprostol 200 Mcg Tab) 1,000 mcg RECTAL ONETIME PRN PRN Reason: excessive bleeding Ondansetron HCl (Ondansetron 4 Mg/2 Ml Sdv) 4 mg IVPUSH Q4H PRN PRN Reason: Nausea/Vomiting Last Admin: 06/29/21 17:03 Dose: 4 mg Documented by: Oxycodone/Acetaminophen (Acetaminophen/Oxycodone 325-5 Mg Tab) 1 tab PO Q4H PRN PRN Reason: Pain (severe 7-10) Oxycodone/Acetaminophen (Acetaminophen/Oxycodone 325-5 Mg Tab) 2 tab PO Q4H PRN PRN Reason: Pain (severe 7-10) Oxytocin (Oxytocin 10 Units/1 Ml Sdv) 10 unit IM ASDIRECTED PRN PRN Reason: Excessive Vaginal Bleeding Sodium Chloride (Sodium Chloride 0.9% 10 Ml Syringe) 10 ml FLUSH ASDIRECTED PRN PRN Reason: Keep Vein Open Sodium Chloride (Sodium Chloride 0.9% 2.5 Ml Syringe) 2.5 ml FLUSH ASDIRECTED PRN PRN Reason: Keep Vein Open Sodium Chloride (Sodium Chloride 0.9% 20 Ml Sdv) 10 ml IV ASDIRECTED PRN PRN Reason: IV Use Discontinued Medications Citric Acid/Sodium Citrate (Citric Acid/Sodium Citrate Solution 30 Ml Cup) 30 ml PO ONETIME ONE Stop: 06/29/21 07:31 Last Admin: 06/29/21 08:04 Dose: 30 ml Documented by: Dexamethasone (Dexamethasone 10 Mg/Ml Sdv) 8 mg IVPUSH ONETIME ONE Stop: 06/29/21 07:41 Last Admin: 06/29/21 07:52 Dose: 8 mg Documented by: Ephedrine Sulfate (Ephedrine 50 Mg/Ml Sdv) Confirm Administered Dose 50 mg .ROUTE .STK-MED ONE Stop: 06/29/21 09:23 Famotidine (Famotidine 20 Mg/2 Ml Sdv) 20 mg IVPUSH ONETIME ONE Stop: 06/29/21 07:41 Last Admin: 06/29/21 08:02 Dose: 20 mg Documented by: Fentanyl (Fentanyl 100 Mcg/2 Ml Sdv) Confirm Administered Dose 100 mcg .ROUTE .STK-MED ONE Stop: 06/29/21 07:22 Fentanyl (Fentanyl 100 Mcg/2 Ml Sdv) Confirm Administered Dose 100 mcg .ROUTE .STK-MED ONE Stop: 06/29/21 08:00 Last Admin: 06/29/21 12:44 Dose: Not Given Documented by: Glycopyrrolate (Glycopyrrolate 0.2 Mg/Ml Sdv) Confirm Administered Dose 0.4 mg .ROUTE .STK-MED ONE Stop: 06/29/21 09:23 Cefazolin Sodium/Dextrose 2 gm (/ Premix) 50 mls @ 100 mls/hr IV ONETIME ONE Stop: 06/29/21 07:59 Last Admin: 06/29/21 06:34 Dose: 100 mls/hr Documented by: Acetaminophen (Ofirmev 1000 Mg/100 Ml) Confirm Administered Dose 100 mls @ as directed .ROUTE .STK-MED ONE Stop: 06/29/21 08:38 Sterile Water (Sterile Water For Injection) Confirm Administered Dose 20 mls @ as directed .ROUTE .STK-MED ONE Stop: 06/29/21 09:45 Ibuprofen (Ibuprofen 600 Mg Tab) 600 mg PO Q6H PRN PRN Reason: Cramping Morphine Sulfate (Morphine Pf 10 Mg/10 Ml Sdv) Confirm Administered Dose 10 mg .ROUTE .STK-MED ONE Stop: 06/29/21 08:10 Octyl Cyanoacrylate (Octyl 2-Cyanoacrylate 1 Tube) Confirm Administered Dose 1 applic .ROUTE .STK-MED ONE Stop: 06/29/21 07:53 Last Admin: 06/29/21 12:44 Dose: Not Given Documented by: Ondansetron HCl (Ondansetron 4 Mg/2 Ml Sdv) 4 mg IVPUSH ONETIME ONE Stop: 06/29/21 07:40 Last Admin: 06/29/21 07:58 Dose: 4 mg Documented by: Oxytocin (Oxytocin 10 Units/1 Ml Sdv) Confirm Administered Dose 60 unit .ROUTE .STK-MED ONE Stop: 06/29/21 09:23 Oxytocin (Oxytocin 10 Units/1 Ml Sdv) Confirm Administered Dose 30 unit .ROUTE .STK-MED ONE Stop: 06/29/21 17:12 - Infant Interaction Infant Disposition, : [place] in Room with Family Infant Interaction: Holding Infant Feeding: Breastfed ; Nursed Well (supplementing with formula) Support Person: - Recovery Exam Fundal Tone: Firm Fundal Level: 1 Fingerbreadths Below Umbilicus Fundal Placement: Midline Lochia Amount: Scant, Small Lochia Color: Rubra/Red Perineum Description: Intact, Minimal Bruising/Swelling Episiotomy/Laceration: None Bladder Status: Indwelling Catheter in Place Urinary Elimination: Other (see below) (talley catheter removed this morning, will attempt to void soon) - Exam General: Alert Lungs: Normal Respiratory Effort Cardiovascular: Regular Rate GI/Abdominal Exam: Soft, Non-Tender, No Distention Extremities: Normal Inspection, Normal Range of Motion, Non-Tender, No Pedal Edema Skin: Warm, Dry, Intact Wound/Incisions: Healing Well Neurological: No New Focal Deficit Psy/Mental Status: Normal Mood - Problem List Review Problem List Initiated/Reviewed/Updated: Yes - My Orders Last 24 Hours: My Active Orders 06/29/21 08:00 Insert Urinary Catheter [OM.PC] Routine Oxytocin/0.9 % Sodium Chloride [Oxytocin 30 Unit in NS 0.9% 500 ML Premix] 30 unit in 500 ml IV TITRATE 06/29/21 09:32 Patient Status [ADT] Routine Ambulate [RC] PER UNIT ROUTINE Communication Order [RC] PER UNIT ROUTINE Communication Order [RC] PER UNIT ROUTINE Communication Order [RC] Per Unit Routine May Shower [RC] ASDIRECTED RT Incentive Spirometry [RC] Q2HWA Vital Signs [RC] Q1H Acetaminophen/oxyCODONE [Percocet 325-5 MG] 1 tab PO Q4H PRN Acetaminophen/oxyCODONE [Percocet 325-5 MG] 2 tab PO Q4H PRN Ibuprofen [Motrin] 800 mg PO Q8H PRN Lanolin [Lansinoh HPA] See Dose Instructions TOP ASDIRECTED PRN Methylergonovine [Methergine] 0.2 mg IM ONETIME PRN Ondansetron [Zofran] 4 mg IVPUSH Q4H PRN Oxytocin [Pitocin] 10 unit IM ASDIRECTED PRN Tranexamic Acid [Cyklokapron] 1,000 mg Sodium Chloride 0.9% [Normal Saline] 100 ml IV ONETIME bisacodyL [Dulcolax] 10 mg RECTAL ONETIME PRN diphenhydrAMINE [Benadryl] 25 mg IVPUSH Q6H PRN miSOPROStoL [Cytotec] 1,000 mcg RECTAL ONETIME PRN Assess Lochia [WOMSER] Per Unit Routine Assess Uterine Involution [WOMSER] Per Unit Routine Breast Pump [WOMSER] Per Unit Routine Peripheral IV Discontinue [OM.PC] Routine Sequential Compression Device [OM.PC] Per Unit Routine 06/29/21 09:45 Ketorolac [Toradol] 30 mg IVPUSH Q6H Lactated Ringers [Ringers, Lactated] 1,000 ml IV ASDIRECTED Oxytocin/0.9 % Sodium Chloride [Oxytocin 30 Unit in NS 0.9% 500 ML Premix] 30 unit in 500 ml IV TITRATE 06/29/21 21:00 Docusate Sodium [Colace] 100 mg PO BID 06/30/21 Breakfast Regular Diet [DIET] - Assessment Assessment:: 25 year old POD1 s/p repeat lower transverse section - Plan Plan:: Routine postoperative cares * Rh positive, rubella immune, GBS negative * Talley catheter removed this AM, has voided independently * Tolerating regular diet * PO pain medications ordered, will change from Percocet to [place] due to intolerance to oxycodone * Encourage ambulation and fluid intake * with supplementation, nursing assistance PRN Gestational diabetes, diet controlled * Fasting glucose ordered for tomorrow AM * Will need 2hr gTT at 6 week PPV Anemia * Hgb 11.0 > 9.6 * Asymptomatic * PO iron supplementation ordered Dispo: stable. Anticipate discharge POD 2-3 pending maternal/infant status. Continue cares today.
[2021-06-30] MEDS ORDERED: Acetaminophen/HYDROcodone 325-5 MG Tab PO PRN (08:36)
[2021-06-30] MEDS ORDERED: Ferrous Sulfate 325 MG Tab PO ONE (08:56)
[2021-06-30] MEDS: Simethicone 80 MG Tab.Chew PO PRN (14:43)
[2021-06-30] MEDS: Ferrous Sulfate 325 MG Tab PO SCH (17:40)
[2021-07-01] MEDS: Simethicone 80 MG Tab.Chew PO PRN ×2 (01:46→09:53)
[2021-07-01] MEDS: Ibuprofen 800 MG Tab PO PRN ×2 (01:46→09:53)
[2021-07-01] MEDS: Ferrous Sulfate 325 MG Tab PO SCH (08:16)
[2021-07-01] MEDS: Docusate Sodium 100 MG Cap PO SCH (08:16)
--- NOTE | 2021-07-01 08:22 | PCM.PNPP ---
- General Info Date of Service: 07/01/21 Admission Dx/Problem (Free Text): Repeat lower transverse section Subjective Update: Resting comfortably in bed during rounds. Pain well controlled. Ambulating and voiding independently. Lochia decreasing. Tolerating regular diet. with supplementation. - General Info Date of Service: 07/01/21 - Patient Data Vital Signs - Most Recent: Last Vital Signs Temp 97.7 F 07/01/21 03:45 Pulse 84 07/01/21 03:45 Resp 18 07/01/21 03:45 BP 117/54 L 07/01/21 03:45 Pulse Ox 96 07/01/21 03:45 Weight - Most Recent: 180 lb Lab Results - Last 24 Hours: Laboratory Results - last 24 hr 07/01/21 Range/Units 05:45 Fasting Glucose 91 (74-106) mg/dL Med Orders - Current: Current Medications Hydrocodone Bitart/Acetaminophen (Acetaminophen/Hydrocodone 325-5 Mg Tab) 1 tab PO Q4H PRN PRN Reason: Pain Bisacodyl (Bisacodyl 10 Mg Supp) 10 mg RECTAL ONETIME PRN PRN Reason: Constipation Diphenhydramine HCl (Diphenhydramine 50 Mg/Ml Sdv) 25 mg IVPUSH Q6H PRN PRN Reason: Itching or Nausea Docusate Sodium (Docusate Sodium 100 Mg Cap) 100 mg PO BID [facility] Last Admin: 07/01/21 08:16 Dose: 100 mg Documented by: Emollient Ointment (Lanolin 100% Cream 7 Gm Tube) 0 gm TOP ASDIRECTED PRN PRN Reason: Sore Nipples Last Admin: 06/29/21 17:08 Dose: 1 applic Documented by: Ferrous Sulfate (Ferrous Sulfate 325 Mg Tab) 325 mg PO BIDMEALS [facility] Last Admin: 07/01/21 08:16 Dose: 325 mg Documented by: Oxytocin/Sodium Chloride (Oxytocin 30 Unit In Ns 0.9% 500 Ml Premix) 30 unit in 500 mls @ 250 mls/hr IV TITRATE [facility] Lactated Ringer's (Ringers, Lactated) 1,000 mls @ 500 mls/hr IV BOLUS [facility] Last Admin: 06/29/21 06:32 Dose: 500 mls/hr Documented by: Lactated Ringer's (Ringers, Lactated) 1,000 mls @ 125 mls/hr IV ASDIRECTED [facility] Last Admin: 06/29/21 14:14 Dose: 125 mls/hr Documented by: Oxytocin/Sodium Chloride (Oxytocin 30 Unit In Ns 0.9% 500 Ml Premix) 30 unit in 500 mls @ 125 mls/hr IV TITRATE [facility]; Protocol Tranexamic Acid 1,000 mg/ (Sodium Chloride) 110 mls @ 660 mls/hr IV ONETIME PRN PRN Reason: Bleeding Ibuprofen (Ibuprofen 800 Mg Tab) 800 mg PO Q8H PRN PRN Reason: Cramping Last Admin: 07/01/21 01:46 Dose: 800 mg Documented by: Methylergonovine Maleate (Methylergonovine 0.2 Mg/1 Ml Amp) 0.2 mg IM ONETIME PRN PRN Reason: Excessive Vaginal Bleeding Misoprostol (Misoprostol 200 Mcg Tab) 1,000 mcg RECTAL ONETIME PRN PRN Reason: excessive bleeding Ondansetron HCl (Ondansetron 4 Mg/2 Ml Sdv) 4 mg IVPUSH Q4H PRN PRN Reason: Nausea/Vomiting Last Admin: 06/29/21 17:03 Dose: 4 mg Documented by: Oxytocin (Oxytocin 10 Units/1 Ml Sdv) 10 unit IM ASDIRECTED PRN PRN Reason: Excessive Vaginal Bleeding Simethicone (Simethicone 80 Mg Tab.Chew) 80 mg PO Q6H PRN PRN Reason: gas pain Last Admin: 07/01/21 01:46 Dose: 80 mg Documented by: Sodium Chloride (Sodium Chloride 0.9% 10 Ml Syringe) 10 ml FLUSH ASDIRECTED PRN PRN Reason: Keep Vein Open Sodium Chloride (Sodium Chloride 0.9% 2.5 Ml Syringe) 2.5 ml FLUSH ASDIRECTED PRN PRN Reason: Keep Vein Open Sodium Chloride (Sodium Chloride 0.9% 20 Ml Sdv) 10 ml IV ASDIRECTED PRN PRN Reason: IV Use Discontinued Medications Citric Acid/Sodium Citrate (Citric Acid/Sodium Citrate Solution 30 Ml Cup) 30 ml PO ONETIME ONE Stop: 06/29/21 07:31 Last Admin: 06/29/21 08:04 Dose: 30 ml Documented by: Dexamethasone (Dexamethasone 10 Mg/Ml Sdv) 8 mg IVPUSH ONETIME ONE Stop: 06/29/21 07:41 Last Admin: 06/29/21 07:52 Dose: 8 mg Documented by: Ephedrine Sulfate (Ephedrine 50 Mg/Ml Sdv) Confirm Administered Dose 50 mg .ROUTE .STK-MED ONE Stop: 06/29/21 09:23 Famotidine (Famotidine 20 Mg/2 Ml Sdv) 20 mg IVPUSH ONETIME ONE Stop: 06/29/21 07:41 Last Admin: 06/29/21 08:02 Dose: 20 mg Documented by: Fentanyl (Fentanyl 100 Mcg/2 Ml Sdv) Confirm Administered Dose 100 mcg .ROUTE .STK-MED ONE Stop: 06/29/21 07:22 Fentanyl (Fentanyl 100 Mcg/2 Ml Sdv) Confirm Administered Dose 100 mcg .ROUTE .STK-MED ONE Stop: 06/29/21 08:00 Last Admin: 06/29/21 12:44 Dose: Not Given Documented by: Ferrous Sulfate (Ferrous Sulfate 325 Mg Tab) 325 mg PO ONETIME ONE Stop: 06/30/21 08:57 Last Admin: 06/30/21 09:11 Dose: 325 mg Documented by: Glycopyrrolate (Glycopyrrolate 0.2 Mg/Ml Sdv) Confirm Administered Dose 0.4 mg .ROUTE .STK-MED ONE Stop: 06/29/21 09:23 Cefazolin Sodium/Dextrose 2 gm (/ Premix) 50 mls @ 100 mls/hr IV ONETIME ONE Stop: 06/29/21 07:59 Last Admin: 06/29/21 06:34 Dose: 100 mls/hr Documented by: Acetaminophen (Ofirmev 1000 Mg/100 Ml) Confirm Administered Dose 100 mls @ as directed .ROUTE .STK-MED ONE Stop: 06/29/21 08:38 Sterile Water (Sterile Water For Injection) Confirm Administered Dose 20 mls @ as directed .ROUTE .STK-MED ONE Stop: 06/29/21 09:45 Ibuprofen (Ibuprofen 600 Mg Tab) 600 mg PO Q6H PRN PRN Reason: Cramping Ketorolac Tromethamine (Ketorolac 30 Mg/Ml Sdv) 30 mg IVPUSH Q6H [facility] Stop: 06/30/21 09:46 Last Admin: 06/30/21 14:43 Dose: Not Given Documented by: Morphine Sulfate (Morphine Pf 10 Mg/10 Ml Sdv) Confirm Administered Dose 10 mg .ROUTE .STK-MED ONE Stop: 06/29/21 08:10 Octyl Cyanoacrylate (Octyl 2-Cyanoacrylate 1 Tube) Confirm Administered Dose 1 applic .ROUTE .STK-MED ONE Stop: 06/29/21 07:53 Last Admin: 06/29/21 12:44 Dose: Not Given Documented by: Ondansetron HCl (Ondansetron 4 Mg/2 Ml Sdv) 4 mg IVPUSH ONETIME ONE Stop: 06/29/21 07:40 Last Admin: 06/29/21 07:58 Dose: 4 mg Documented by: Oxytocin (Oxytocin 10 Units/1 Ml Sdv) Confirm Administered Dose 60 unit .ROUTE .STK-MED ONE Stop: 06/29/21 09:23 Oxytocin (Oxytocin 10 Units/1 Ml Sdv) Confirm Administered Dose 30 unit .ROUTE .STK-MED ONE Stop: 06/29/21 17:12 - Interaction Disposition, : [place] in Room with Family Infant Interaction: Holding Infant Feeding: Breastfed ; Nursed Well (supplementing with formula) Support Person: - Recovery Exam Fundal Tone: Firm Fundal Level: 1 Fingerbreadths Below Umbilicus Fundal Placement: Midline Lochia Amount: Scant, Small Lochia Color: Rubra/Red Perineum Description: Intact, Minimal Bruising/Swelling Episiotomy/Laceration: None Bladder Status: Voiding Urinary Elimination: Voided - Exam General: Alert Lungs: Normal Respiratory Effort Cardiovascular: Regular Rate GI/Abdominal Exam: Soft, Non-Tender Extremities: Normal Inspection, Normal Range of Motion, Non-Tender Skin: Warm, Dry, Intact Wound/Incisions: Healing Well, Dressing Dry and Intact Neurological: No New Focal Deficit Psy/Mental Status: Normal Mood - Problem List Review Problem List Initiated/Reviewed/Updated: Yes - My Orders Last 24 Hours: My Active Orders 06/30/21 08:36 Acetaminophen/HYDROcodone [[place] 325-5 MG] 1 tab PO Q4H PRN 06/30/21 14:30 Simethicone 80 mg PO Q6H PRN 06/30/21 17:00 Ferrous Sulfate 325 mg PO BIDMEALS - Assessment Assessment:: 25 year old POD2 s/p repeat lower transverse section - Plan Plan:: Routine postoperative cares * Rh positive, rubella immune, GBS negative * Tolerating regular diet * PO pain medications ordered, will change from Percocet to [place] due to intolerance to oxycodone * Encourage ambulation and fluid intake * with supplementation, nursing assistance PRN Gestational diabetes, diet controlled * Fasting glucose this morning 91 * Will need 2hr gTT at 6 week PPV Anemia * Hgb 11.0 > 9.6 * Asymptomatic * PO iron supplementation ordered Dispo: stable. Anticipate discharge today pending maternal/infant status. Discharge instructions reviewed. Patient to return to clinic in 2 weeks for incision check and 6 weeks for .
[2021-07-01 08:57] VITALS: BP 109/58; PULSE 90
== END 2021-07-01 11:25 | disposition home or self-care (01) | DRG 540 ==
LOC: MW.OB 05:15
PROVIDERS: ADMIT Obstetrics & Gynecology; ATTEND Obstetrics & Gynecology
PROC: 10D00Z1 Extraction of Products of Conception, Low, Open Approach (ICD-10-PCS; principal; 2021-06-29)
DX: O34.211 Maternal care for low transverse scar from previous cesarean delivery (principal); Z37.0 Single live birth; O24.420 Gestational diabetes mellitus in childbirth, diet controlled; Z3A.39 39 weeks gestation of pregnancy
CPT/HCPCS: 01961; 36415; 59025; 82947; 85014; 85018; 85027; 86592; 86850; 86900; 86901; A9270-GY; J0131; J0690; J1100; J1885; J2270; J2405; J2590; J3010; J3490; J7120

== ENCOUNTER 2024-01-28 18:16 | Emergency (ER) | payer BC, OTHER ==
[2024-01-28 18:42] VITALS: BP 135/75
[2024-01-28 19:03] LABS: APPEARANCE,URINE CLEAR; BILIRUBIN,URINE NEGATIVE (NEGATIVE); COLOR,URINE YELLOW; GLUCOSE,URINE NEGATIVE (NEGATIVE); KETONES,URINE NEGATIVE (NEGATIVE); LEUKOCYTE ESTERASE,URINE NEGATIVE (NEGATIVE); NITRITE,URINE NEGATIVE (NEGATIVE); OCCULT BLOOD,URINE NEGATIVE (NEGATIVE); PH,URINE 6.5 (5.0-8.0); PROTEIN,URINE NEGATIVE (NEGATIVE)
[2024-01-28 19:16] LABS: BASOPHILS ABSOLUTE AUTO 0.02 K/uL (0.00-0.20); BASOPHILS PERCENT AUTO 0.2 % (0.0-1.0); EOSINOPHILS ABSOLUTE AUTO 0.11 K/uL (0.00-0.45); EOSINOPHILS PERCENT AUTO 1.3 % (0.0-6.0); HEMATOCRIT 38.6 % (37.0-47.0); HEMOGLOBIN 13.2 g/dL (12.0-16.0); IMMATURE GRAN ABSOLUTE AUTO 0.01 K/uL (0.00-0.05); IMMATURE GRAN PERCENT AUTO 0.1 % (0.0-0.4); LYMPHOCYTES ABSOLUTE AUTO 1.78 K/uL (1.00-4.80); LYMPHOCYTES PERCENT AUTO 20.6 % (24.0-44.0); MEAN CORPUSCULAR HEMOGLOBIN 29.2 pg (28.0-32.0); MEAN CORPUSCULAR HGB CONC 34.2 g/dL (32.0-36.0); MEAN CORPUSCULAR VOLUME 85.4 fL (83.0-99.0); MEAN PLATELET VOLUME 10.1 fL (9.4-12.3); MONOCYTES ABSOLUTE AUTO 0.44 K/uL (0.00-0.80); MONOCYTES PERCENT AUTO 5.1 % (0.0-8.0); NEUTROPHILS ABSOLUTE AUTO 6.28 K/uL (1.80-7.70); NEUTROPHILS PERCENT AUTO 72.7 % (41.0-71.0); PLATELET COUNT,PLT 204 K/uL (150-400); RED BLOOD CELL COUNT 4.52 M/uL (4.10-5.30); WHITE BLOOD CELL COUNT,WBC 8.64 K/uL (3.9-11.3)
[2024-01-28] MEDS: Sodium Chloride 0.9% 1,000 ML IV ONE (19:17)
[2024-01-28] MEDS: Alum Hydro/Mag Hydro/Simeth XS 15 ML, Metoclopramide 5 MG, Lidocaine 2% 5 ML PO ONE (19:18)
[2024-01-28] MEDS: Ketorolac 30 MG/ML SDV IVPUSH ONE (19:18)
[2024-01-28 19:44] LABS: A/G RATIO 1.2 (0.9-1.6); ALBUMIN 3.9 g/dL (3.4-5.0); BILIRUBIN TOTAL 1.2 mg/dL (0.2-1.0); CALCIUM 9.2 mg/dL (8.5-10.1); CARBON DIOXIDE,CO2 28.4 mmol/L (21.0-32.0); CREATININE 0.8 mg/dL (0.6-1.0); EST CRCL DRUG DOSING (CG) 85.06 mL/min; POTASSIUM,K 3.9 mmol/L (3.5-5.1); PROTEIN TOTAL,TP 7.2 g/dL (6.4-8.2)
[2024-01-28 20:19] VITALS: PULSE 86
== END 2024-01-28 20:15 | disposition home or self-care (01) ==
LOC: MW.ED 18:16
DX: R74.01 Elevation of levels of liver transaminase levels (principal); R10.84 Generalized abdominal pain; Z75.8 Other problems related to medical facilities and other health care; Z91.018 Allergy to other foods; Z79.899 Other long term (current) drug therapy
CPT/HCPCS: 36415; 80053; 81003; 81025; 83690; 85025; 96361; 96374; 99284; A9270; J1885; J7030